=== PATIENT | female | born 1975 ===

== ENCOUNTER → 2016-08-20 17:00 | Outpatient (CLI) | payer MEDICAID ==
[2011-02-09 06:28] VITALS: BMI 29.5
== END | disposition home or self-care (01) ==
LOC: D.MAMMO 08:30
DX: Z12.31 Encounter for screening mammogram for malignant neoplasm of breast (principal)

== ENCOUNTER → 2017-08-13 19:51 | Outpatient (CLI) | payer MEDICAID ==
[2011-02-09 06:28] VITALS: BMI 29.5
== END | disposition home or self-care (01) ==
LOC: D.MAMMO 13:45
DX: Z12.31 Encounter for screening mammogram for malignant neoplasm of breast (principal)

== ENCOUNTER → 2017-09-14 10:09 | Outpatient (CLI) | payer MEDICAID ==
[2011-02-09 06:28] VITALS: BMI 29.5
== END | disposition home or self-care (01) ==
LOC: D.MAMMO 10:09
DX: R92.8 Other abnormal and inconclusive findings on diagnostic imaging of breast (principal)

== ENCOUNTER 2018-09-21 19:00 | Outpatient (CLI) | payer MEDICAID ==
[2011-02-09 06:28] VITALS: BMI 29.5
== END 2018-09-21 23:59 | disposition home or self-care (01) ==
LOC: D.MAMMO 19:00
PROVIDERS: ATTEND Nurse Practitioner Women's Health
DX: Z12.31 Encounter for screening mammogram for malignant neoplasm of breast (principal)